=== PATIENT | male | born 1945 | race American Indian/Alaskan Native ===

== ENCOUNTER 2016-08-24 23:39 | Inpatient (IN) | payer MEDICAID, MEDICARE ==
[2016-08-25] MEDS ORDERED: Sodium Chloride 0.9% 1,000 ML IV ONE (00:24)
--- NOTE | 2016-08-25 00:24 | C.PDOC ---
History Of Present Illness Patient presents to the ER with a complaint of LLQ pain with no appetite. Patient saw PMD who referred her to the ER. Denies fever or chills. Time Seen by Provider: 08/25/16 00:21 Chief Complaint (Nursing): Abdominal Pain History Per: Patient History/Exam Limitations: no limitations Onset/Duration Of Symptoms: Hrs Current Symptoms Are (Timing): Still Present Severity: Moderate Pain Scale Rating Of: 4 Location Of Pain/Discomfort: LLQ Radiation Of Pain To:: None Quality Of Discomfort: Unable To Describe Associated Symptoms: denies: Fever, Chills Exacerbating Factors: None Alleviating Factors: None Last Bowel Movement: Days Ago Recent travel outside of the [place]: No Additional History Per: Patient Past Medical History Reviewed: Historical Data, Nursing Documentation, Vital Signs Vital Signs: Last Vital Signs Temp 97.7 F 08/24/16 23:48 Pulse 82 08/24/16 23:48 Resp 16 08/24/16 23:48 BP 126/74 08/24/16 23:48 Pulse Ox 99 08/25/16 01:51 - Medical History PMH: No Chronic Diseases Surgical History: No Surg Hx Family History: States: No Known Family Hx - Social History Hx Alcohol Use: No Hx Substance Use: No - Immunization History Hx Tetanus Toxoid Vaccination: No Hx Influenza Vaccination: No Hx Pneumococcal Vaccination: No Review Of Systems Constitutional: Negative for: Fever, Chills ENT: Negative for: Throat Pain Cardiovascular: Negative for: Chest Pain Respiratory: Negative for: Shortness of Breath Gastrointestinal: Positive for: Abdominal Pain (LLQ), Constipation Genitourinary: Negative for: Dysuria Musculoskeletal: Negative for: Back Pain Skin: Negative for: Rash, Lesions, Jaundice, Bruising Neurological: Negative for: Weakness Psych: Negative for: Anxiety Physical Exam - Physical Exam Appears: Non-toxic Skin: Warm, Dry Eye(s): bilateral: Normal Inspection Oral Mucosa: Moist Neck: Trachea Midline, Supple Chest: Symmetrical, No Tenderness Cardiovascular: Rhythm Regular, No Murmur Respiratory: No Rales, No Rhonchi, No Wheezing Gastrointestinal/Abdominal: Soft, Tenderness (LLQ), No Guarding, No Rebound Back: Normal Inspection Extremity: Normal ROM Extremity: Bilateral: Atraumatic, Normal Color And Temperature Neurological/Psych: Oriented x3, Normal Speech, Normal Cognition Gait: Steady ED Course And Treatment - Laboratory Results Result Diagrams: 08/25/16 00:40 08/25/16 00:40 O2 Sat by Pulse Oximetry: 99 (Room air) Pulse Ox Interpretation: Normal Progress Note: Toradol IVP, pepcid IVP and IV fluids administered. CT of abd/ pel w/ IV contrast ordered. Disposition Discussed With DrKeegan: Leda Alex Comment: accepted the pt on his service and took over the care at 2 AM Doctor Will See Patient In The: Hospital Counseled Patient/Family Regarding: Studies Performed, Diagnosis - Disposition Disposition: HOSPITALIZED Disposition Time: 00:24 Condition: FAIR - POA Present On Arrival: None - Clinical Impression Clinical Impression: Abdominal pain, Elevated liver enzymes, Pancreatic mass - Scribe Statement The provider has reviewed the documentation as recorded by the Scribe Lionel Levin All medical record entries made by the Scribe were at my direction and personally dictated by me. I have reviewed the chart and agree that the record accurately reflects my personal performance of the history, physical exam, medical decision making, and the department course for this patient. I have also personally directed, reviewed, and agree with the discharge instructions and disposition. Decision To Admit - Pt Status Changed To: Hospital Disposition Of: Inpatient - Admit Certification Admit to Inpatient:: After my assessment, the patient will require hospitalization for at least two midnights. This is because of the severity of symptoms shown, intensity of services needed, and/or the medical risk in this patient being treated as an outpatient. - InPatient: Physician Admission Certification:: After my assessment, the patient will require hospitalization for at least two midnights. This is because of the severity of symptoms shown, intensity of services needed, and/or the medical risk in this patient being treated as an outpatient. - . Bed Request Type: Regular Admitting Physician: Leda Alex Patient Diagnosis: Abdominal pain, Elevated liver enzymes, Pancreatic mass
[2016-08-25] MEDS ORDERED: Sodium Chloride 0.9% 1,000 ML ONE (00:37)
[2016-08-25 00:43] LABS: BASO % 0.8 % (0.0-2.0); EOS # 0.1 K/uL (0.0-0.7); EOS % 1.8 % (0.0-4.0); HEMATOCRIT 38.3 % (35.0-51.0); LYMPH # 1.4 K/uL (1.0-4.3); LYMPH % 25.4 % (20.0-40.0); MEAN CELL VOLUME 91.1 fL (80.0-94.0); MEAN CORPUSCULAR HEMOGLOBIN 30.4 pg (27.0-31.0); MEAN CORPUSCULAR HGB CONC 33.3 g/dL (33.0-37.0); MEAN PLATELET VOLUME 10.4 fL (7.2-11.7); MONO # 0.7 K/uL (0.0-0.8); MONO % 11.9 % (0.0-10.0); NRBC % 0.1 % (0.0-2.0); RED CELL DISTRIBUTION WIDTH 14.2 % (11.5-14.5); WHITE BLOOD COUNT 5.6 K/uL (4.8-10.8)
[2016-08-25 00:47] LABS: RBC URINE < 1 /hpf (0-3); URINE BACTERIA RARE (<OCC); URINE BILIRUBIN 2+ (NEGATIVE); URINE BLOOD NEGATIVE (NEGATIVE); URINE COLOR Amber (YELLOW); URINE GLUCOSE (UA) NORMAL (Normal); URINE KETONE NEGATIVE (NEGATIVE); URINE LEUKOCYTE ESTERASE NEG Leu/uL (Negative); URINE PROTEIN NEGATIVE (NEGATIVE); WBC URINE 3 /hpf (0-5)
[2016-08-25] MEDS ORDERED: Iodixanol 320 MG/ML 100 ML BOTTLE IV ONE (00:50)
[2016-08-25 00:53] LABS: CHLORIDE 97 mmol/L (98-107); INR 1.1; POTASSIUM 4.3 mmol/L (3.6-5.2); SODIUM 132 mmol/L (132-148)
[2016-08-25 00:56] LABS: ALKALINE PHOSPHATASE 393 U/L (38-126); ALT/SGPT 263 U/L (21-72); AST/SGOT 177 U/L (17-59); BILIRUBIN,TOTAL 10.3 mg/dL (0.2-1.3); BLOOD UREA NITROGEN 11 mg/dL (9-20); CALCIUM 9.3 mg/dl (8.6-10.4); CARBON DIOXIDE 24 mmol/L (22-30); GFR AFRICAN-AMERICAN > 60; GLUCOSE,RANDOM 108 mg/dL (75-110); TOTAL PROTEIN 7.9 g/dL (6.3-8.3)
[2016-08-25 03:08] VITALS: RESP 20
[2016-08-25] MEDS: Sodium Chloride 0.9% 1,000 ML IV SCH ×2 (09:30→19:30)
--- NOTE | 2016-08-25 10:53 | CT ---
PROCEDURE: CT Abdomen and Pelvis with contrast HISTORY: abd pain COMPARISON: None. TECHNIQUE: Contrast dose: 100 cc Visipaque 320 Radiation dose: Total exam DLP = mGy-cm. This CT exam was performed using one or more of the following dose reduction techniques: Automated exposure control, adjustment of the mA and/or kV according to patient size, and/or use of iterative reconstruction technique. FINDINGS: 354.11 LOWER THORAX: Unremarkable. LIVER: No focal hepatic mass. Moderate -severe intrahepatic bile duct dilatation. She GALLBLADDER AND BILE DUCTS: Distended gallbladder, dilated common bile duct and intrahepatic biliary radicles. PANCREAS: Ill-defined pancreatic head mass 4.4 x 4.3 cm. Diffuse infiltrative changes peripancreatic region with narrowing, involvement of branches of the celiac, splenic and hepatic arteries. This is inseparable from adjacent lymphadenopathy. Dilatation of the more distal pancreatic duct and pancreatic atrophy. Common and intrahepatic bile duct dilatation. SPLEEN: Unremarkable spleen. 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 ADRENALS: Unremarkable. No mass. KIDNEYS AND URETERS: Unremarkable. No hydronephrosis. No solid mass. VASCULATURE: Unremarkable. No aortic aneurysm. BOWEL: Unremarkable. No obstruction. No gross mural thickening. APPENDIX: Normal appendix. PERITONEUM: Unremarkable. No free fluid. No free air. LYMPH NODES: Unremarkable. No enlarged lymph nodes. BLADDER: Unremarkable. REPRODUCTIVE: Unremarkable. BONES: No acute fracture. OTHER FINDINGS: None. IMPRESSION: Findings consistent with primary pancreatic neoplasm. Large bulky mass involving the head of the pancreas is inseparable from diffuse infiltrative tumor burden invading and narrowing celiac axis and branch vessels as well as occluding the splenic vein. Obstruction of the biliary system with common bile duct and intrahepatic bile duct dilatation. Multiple pulmonary nodules consistent with metastatic disease. Concordant results (preliminary interpretation) provided by [facility]. Procedure Completed: :29. Preliminary ([facility]) Report: Dictated and Authenticated: 01:55. Final Interpretation: 07:45. August 24, 2016.
--- NOTE | 2016-08-25 13:42 | CP.PCM.CON ---
<Farida Roque - Last Filed: 08/25/16 13:55> History of Present Illness - History of Present Illness History of Present Illness: Gastroenterology Fellow/PGY4 Consult Note 71 year old male with no prior medial history presenting with abdominal pain. Patient describes progressive epigastric and left upper quadrant pain radiating to left flank for four weeks. He notes a 45 pound unintentional weight loss since April 2016. Associated loss of appetite, indigestion, acid reflux, bloating, yellowing of eyes, and lack of sleep due to pain for the last 4-5 weeks. Denies nausea, vomiting, hematemesis, diarrhea, melena, hematochezia, yellowing of skin, pruritis, fever, chills, sweats, chest pain, or shortness of breath. Admits to constipation with no bowel movement for two weeks in July 2016. He associates this episode with only oral intake via juicing of fruits and vegetables. Outside of this ever, bowel habit with straining every two days. No prior EGD. Prior colonoscopy 2002 and 2007 or 2008 endorsed to be normal. Family- denies pancreatic cancer, liver cancer, colon cancer Social-denies prior or present use of tobacco or illict drug use, rare wine intake of once per year; vegetarian Surgery- none Review of Systems - Review of Systems Review of Systems: A 12-point review of systems negative except for as above Past Patient History - Past Medical History & Family History Past Medical History?: Yes - Past Social History Smoking Status: Never Smoked - CARDIAC Hx Cardiac Disorders: No - PULMONARY Hx Respiratory Disorders: No - NEUROLOGICAL Hx Neurological Disorder: No - HEENT Hx HEENT Problems: Yes Other/Comment: pt wears prescription eyeglasses - RENAL Hx Chronic Kidney Disease: No - ENDOCRINE/METABOLIC Hx Endocrine Disorders: No - HEMATOLOGICAL/ONCOLOGICAL Hx Blood Disorders: No - INTEGUMENTARY Hx Dermatological Problems: No - MUSCULOSKELETAL/RHEUMATOLOGICAL Hx Musculoskeletal Disorders: No Hx Falls: No - GASTROINTESTINAL Hx Gastrointestinal Disorders: No - GENITOURINARY/GYNECOLOGICAL Hx Genitourinary Disorders: No - PSYCHIATRIC Hx Psychophysiologic Disorder: No Hx Substance Use: No - SURGICAL HISTORY Hx Surgeries: No - ANESTHESIA Hx Anesthesia: No Hx Anesthesia Reactions: No Hx Malignant Hyperthermia: No Has any member of the family had a problem w/ anesthesia?: No Meds Allergies/Adverse Reactions: Allergies Allergy/AdvReac Type Severity Reaction Status Date / Time No Known Allergies Allergy Verified 08/24/16 23:54 - Medications Medications: Current Medications Famotidine (Pepcid) 20 mg IVP Q12 [facility] Last Admin: 08/25/16 11:43 Dose: 20 mg Sodium Chloride (Sodium Chloride 0.9%) 1,000 mls @ 100 mls/hr IV .Q10H [facility] Last Admin: 08/25/16 09:30 Dose: 100 mls/hr Physical Exam - Constitutional Appears: Non-toxic, No Acute Distress - Head Exam Head Exam: ATRAUMATIC, NORMOCEPHALIC - Eye Exam Eye Exam: EOMI, PERRL, Scleral icterus Pupil Exam: PERRL. absent: Miosis, Mydriatic - ENT Exam ENT Exam: Mucous Membranes Moist, Normal Oropharynx - Neck Exam Neck exam: Positive for: Full Rom, Normal Inspection - Respiratory Exam Respiratory Exam: Clear to Auscultation Bilateral. absent: Rales, Rhonchi, Wheezes - Cardiovascular Exam Cardiovascular Exam: RRR, +S1, +S2. absent: Gallop, Rubs - GI/Abdominal Exam GI & Abdominal Exam: Normal Bowel Sounds, Soft, Tenderness. absent: Distended, Firm, Guarding, Organomegaly, Rebound, Rigid Additional comments: epigastric and LUQ tenderness to palpation - Extremities Exam Extremities exam: Positive for: full ROM. Negative for: pedal edema - Neurological Exam Neurological exam: Alert - Psychiatric Exam Psychiatric exam: Normal Affect, Normal Mood - Skin Skin Exam: Dry, Intact, Normal Color, Warm Results - Vital Signs Recent Vital Signs: Last Vital Signs Temp 98.3 F 08/25/16 07:45 Pulse 76 08/25/16 07:45 Resp 20 08/25/16 07:45 BP 144/81 08/25/16 07:45 Pulse Ox 100 08/25/16 07:45 - Labs Result Diagrams: 08/25/16 00:40 08/25/16 00:40 Assessment & Plan - Assessment and Plan (Free Text) Assessment: 71 year old male with no prior medial history presenting with abdominal pain and weight loss. CT A/P showed pancreatic head 4.4x4.3cm lesion with narrowing of celiac axis inseparable from adjacent lymphadenopathy, distal pancreatic duct dilatation, moderate-severe biliary dilatations, and multiple pulmonary nodules concerning for metastatic disease. laboratory findings showed hyperbilirubinemia and transaminitis. No prior EGD. Prior colonoscopy 2002 and 2007 or 2008 endorsed to be normal. Plan: >high suspicion for pancreatic carcinoma with liver metastases >ordered DB, Hepatitis panel, GGT >scheduled for EGD/EUS/ERCP/FNA at [facility] Monday >vegetarian diet >NPO after midnight >Hem/Onc consulted- follow up recommendations >supportive care: pain control >further recommendations based on clinical course <Melvin Don - Last Filed: 08/25/16 14:46> Meds - Medications Medications: Current Medications Famotidine (Pepcid) 20 mg IVP Q12 [facility] Last Admin: 08/25/16 11:43 Dose: 20 mg Sodium Chloride (Sodium Chloride 0.9%) 1,000 mls @ 100 mls/hr IV .Q10H [facility] Last Admin: 08/25/16 09:30 Dose: 100 mls/hr Results - Vital Signs Recent Vital Signs: Last Vital Signs Temp 98.3 F 08/25/16 07:45 Pulse 76 08/25/16 07:45 Resp 20 08/25/16 07:45 BP 144/81 08/25/16 07:45 Pulse Ox 100 08/25/16 07:45 - Labs Result Diagrams: 08/25/16 00:40 08/25/16 00:40 Attending/Attestation - Attestation I have personally seen and examined this patient.: Yes I have fully participated in the care of the patient.: Yes I have reviewed all pertinent clinical information: Yes Notes (Text): 08/25/16 14:38 I have seen and examined patient with GI fellow. Agree with above documentation with the following additions. In brief, this is a 71 year old male without significant past medical history who presents to hospital with complaint of progressive abdominal pain for the past one month. He describes an epigastric pain, 4/10 intensity that radiates to left flank. There does not seem to be any association with food consumption. He also reports an unintentional weight loss of approximately 45 pounds over the past 5 months along with fatigue and loss of appetite. Recent visit to PMD prompted patient to come to hospital after jaundice was noted on examination. He otherwise denies nausea, vomiting, fever/chills, diarrhea, rectal bleeding, or change in bowel habits. He had a colonoscopy 8 years ago which was normal as per patient , no prior EGD. Abdominal pain, weight loss Obstructive jaundice - acute posing threat to patient life CT imaging reviewed by me showing a focal pancreatic head mass along with associated biliary dilation of CBD/PD, multiple pulmonary nodules suggestive of metastatic disease - Clinical picture worrisome for underlying malignancy, suspected to be pancreatic in origin - Pain control - Will plan for EUS/FNA of lesion along with ERCP +/- stent placement for biliary decompression - Continue to monitor LFTs - Fractionate bilirubin - Oncology evaluation called by medical team, follow up recommendations - NPO after midnight for planned endoscopic intervention tomorrow to be performed at [place] with Dr. Scanlon
--- NOTE | 2016-08-25 18:53 | CP.PCM.HP ---
History of Present Illness - History of Present Illness History of Present Illness: 71-year-old male with no prior medical history presenting with abdominal pain. Patient describes progressive epigastric and left upper quadrant pain radiating to left flank for 4 weeks. Patient notes a 45 pound unintentional weight loss since April 2016. Associated loss of appetite, indigestion, acid reflux, bloating, evaluation of eyes, lack of sleep due to pain for the last 4-5 weeks. Denies nausea, vomiting, hematemesis, diarrhea, melena, hematochezia, elevation of skin, pruritus, fever, chills, sweats, chest pain or SOB. Admits to constipation with no bowel movement for 2 weeks in 2016. Outside of this ever, bowel habit straining every 2 days. No prior EGD, prior colonoscopy 2002 and 2007 or 2008 to be normal. Present on Admission - Present on Admission Any Indicators Present on Admission: No Past Patient History - Past Medical History & Family History Past Medical History?: Yes - Past Social History Smoking Status: Never Smoked - CARDIAC Hx Cardiac Disorders: No - PULMONARY Hx Respiratory Disorders: No - NEUROLOGICAL Hx Neurological Disorder: No - HEENT Hx HEENT Problems: Yes Other/Comment: pt wears prescription eyeglasses - RENAL Hx Chronic Kidney Disease: No - ENDOCRINE/METABOLIC Hx Endocrine Disorders: No - HEMATOLOGICAL/ONCOLOGICAL Hx Blood Disorders: No - INTEGUMENTARY Hx Dermatological Problems: No - MUSCULOSKELETAL/RHEUMATOLOGICAL Hx Musculoskeletal Disorders: No Hx Falls: No - GASTROINTESTINAL Hx Gastrointestinal Disorders: No - GENITOURINARY/GYNECOLOGICAL Hx Genitourinary Disorders: No - PSYCHIATRIC Hx Psychophysiologic Disorder: No Hx Substance Use: No - SURGICAL HISTORY Hx Surgeries: No - ANESTHESIA Hx Anesthesia: No Hx Anesthesia Reactions: No Hx Malignant Hyperthermia: No Has any member of the family had a problem w/ anesthesia?: No Meds Allergies/Adverse Reactions: Allergies Allergy/AdvReac Type Severity Reaction Status Date / Time No Known Allergies Allergy Verified 08/24/16 23:54 Physical Exam - Constitutional Appears: Well - Head Exam Head Exam: ATRAUMATIC, NORMAL INSPECTION, NORMOCEPHALIC - Eye Exam Eye Exam: EOMI, Normal appearance, PERRL Pupil Exam: NORMAL ACCOMODATION, PERRL - ENT Exam ENT Exam: Mucous Membranes Moist, Normal Exam - Neck Exam Neck exam: Positive for: Normal Inspection - Respiratory Exam Respiratory Exam: Decreased Breath Sounds - Cardiovascular Exam Cardiovascular Exam: REGULAR RHYTHM, +S1, +S2 - GI/Abdominal Exam GI & Abdominal Exam: Diminished Bowel Sounds, Soft - Rectal Exam Rectal Exam: Deferred Results - Vital Signs Recent Vital Signs: Last Vital Signs Temp 97.3 F L 08/25/16 15:40 Pulse 64 08/25/16 15:40 Resp 20 08/25/16 15:40 BP 108/70 08/25/16 15:40 Pulse Ox 97 08/25/16 15:40 - Labs Result Diagrams: 08/28/16 08:16 08/28/16 08:16 Labs: Laboratory Results - last 24 hr 08/25/16 08/25/16 08/25/16 17:02 17:02 17:06 POC Glucose (mg/dL) 144 H Direct Bilirubin 7.0 H GGT 254 H Hepatitis A IgM Ab Negative Hep Bs Antigen Negative Hep B Core IgM Ab Negative Hepatitis C Antibody Negative Assessment & Plan (1) Abdominal pain Status: Acute (2) Elevated liver enzymes Status: Acute (3) Pancreatic mass Status: Acute - Assessment and Plan (Free Text) Plan: Consult hematology/oncology Consult GI Pepcid IV fluid Dilaudid
[2016-08-26] MEDS: HYDROmorphone 1 mg/ml ISec IVP PRN (00:30)
[2016-08-26] MEDS: Sodium Chloride 0.9% 1,000 ML IV SCH ×3 (00:34→23:10)
--- NOTE | 2016-08-26 13:22 | CP.PCM.PN ---
Subjective - Date & Time of Evaluation Date of Evaluation: 08/26/16 Time of Evaluation: 08:00 - Subjective Subjective: clinically same Objective - Vital Signs/Intake and Output Vital Signs (last 24 hours): Temp Pulse Resp BP Pulse Ox 97.6 F 69 20 118/63 97 08/26/16 06:34 08/26/16 06:34 08/26/16 06:34 08/26/16 06:34 08/26/16 06:34 Intake and Output: 08/26/16 08/26/16 06:59 18:59 Intake Total 1500 Balance 1500 - Medications Medications: Current Medications Famotidine (Pepcid) 20 mg IVP Q12 [facility] Last Admin: 08/25/16 21:08 Dose: 20 mg Hydromorphone HCl (Dilaudid) 1 mg IVP Q8H PRN PRN Reason: for pain Last Admin: 08/26/16 00:30 Dose: 1 mg Sodium Chloride (Sodium Chloride 0.9%) 1,000 mls @ 75 mls/hr IV .[id number] [facility] Last Admin: 08/26/16 00:34 Dose: 75 mls/hr - Labs Labs: PT 12.1 SECONDS (9.7-12.2) 08/25/16 00:40 INR 1.1 08/25/16 00:40 APTT 32 SECONDS (21-34) 08/25/16 00:40 - Constitutional Appears: Well - Head Exam Head Exam: ATRAUMATIC, NORMAL INSPECTION, NORMOCEPHALIC - Eye Exam Eye Exam: EOMI, Normal appearance, PERRL Pupil Exam: NORMAL ACCOMODATION, PERRL - ENT Exam ENT Exam: Mucous Membranes Moist, Normal Exam - Neck Exam Neck Exam: Full ROM, Normal Inspection. absent: Lymphadenopathy - Respiratory Exam Respiratory Exam: Decreased Breath Sounds - Cardiovascular Exam Cardiovascular Exam: REGULAR RHYTHM, +S1, +S2 - GI/Abdominal Exam GI & Abdominal Exam: Soft, Diminished Bowel Sounds - Rectal Exam Rectal Exam: Deferred Assessment and Plan - Assessment and Plan (Free Text) Plan: ctscan reveals large mass in hed of prncreaseand also incolving mulitple mets to pulmnoary area will discussed iwht pt
--- NOTE | 2016-08-26 14:53 | CON ---
DATE: 08/26/2016 A 71-year-old gentleman, got readmitted with abdominal pain and discomfort. Also, has lost 45 pounds of involuntary weight loss, decreased appetite, decreased energy, feeling very weak and tired. Also , has a bloating sensation. Eyes have become yellow. However, no nausea, vomiting, hematemesis. No diarrhea or melena. Some pruritus, but no fever or chills, no night sweats. Now admitted, already had a CAT scan done which showed metastatic carcinoma of the pancreas to the liver, possible to the l joanne too. I am called on consult for further evaluation and suggestions. PAST MEDICAL HISTORY: Not been significant. MEDICATIONS: The patient is on Pepcid. ALLERGIES: No known drug allergies. Nonsmoker, no ethanol abuse, vegetarian. FAMILY HISTORY: Not significant for any malignancy. REVIEW OF SYSTEMS: Denies any headache, dizziness, or passing out. Generalized weakness. No chest pain or palpitation. No nausea or vomiting. Denies any dysuria or hematuria. PHYSICAL EXAMINATION: GENERAL: Awake and alert, emaciated. VITAL SIGNS: Temperature 97.3, pulse 64, respirations 20, blood pressure 108/70. HEAD: Normocephalic, atraumatic. EYES: Conjunctivae pink. Sclerae icteric. Pupils reacting to light. EARS, NOSE, AND THROAT: Within normal limits. LUNGS: Bilaterally good air entry. Clear to auscultation and percussion. HEART: S1, S2, regular, no gallop, no murmur. ABDOMEN: Soft, mild tenderness in the midepigastric region. LYMPH NODES: No cervical or axillary lymph nodes palpable. LABORATORY DATA: WBC 5600, hemoglobin 12.8, hematocrit 38.3, platelet counts 159,000. Bilirubin is 10.3. His GGTP is 244. SGOT is 263, SGPT is 393. 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 PLAN: The patient was already evaluated by the skydiving instructor. Will have a workup done to confi rm the diagnosis with a biopsy, most likely with endoscopic ultrasound. Once the biopsy confirms the diagnosis, we can talk about further treatment. The patient's prognosis is poor. I will discuss mo re detail with the patient after the biopsy has been done. Thank you for letting me participate in the care of this patient and I will follow up the patient wit h you. Juan Dominguez MD cc: [id number] TT: 08/26/2016 14:52:33 Confirmation # [id number] Dictation # [id number]
[2016-08-26 21:39] LABS: BASO % 0.1 % (0.0-2.0); EOS % 0.3 % (0.0-4.0); HEMATOCRIT 40.5 % (35.0-51.0); LYMPH # 0.9 K/uL (1.0-4.3); LYMPH % 10.5 % (20.0-40.0); MEAN CORPUSCULAR HEMOGLOBIN 30.9 pg (27.0-31.0); MEAN CORPUSCULAR HGB CONC 33.5 g/dL (33.0-37.0); MEAN PLATELET VOLUME 10.8 fL (7.2-11.7); MONO # 0.8 K/uL (0.0-0.8); MONO % 9.4 % (0.0-10.0); RED CELL DISTRIBUTION WIDTH 14.6 % (11.5-14.5); WHITE BLOOD COUNT 8.7 K/uL (4.8-10.8)
[2016-08-26 21:47] LABS: CHLORIDE 98 mmol/L (98-107); POTASSIUM 4.4 mmol/L (3.6-5.2); SODIUM 135 mmol/L (132-148)
[2016-08-26 21:49] LABS: BILIRUBIN,TOTAL 8.1 mg/dL (0.2-1.3); CARBON DIOXIDE 28 mmol/L (22-30); GFR AFRICAN-AMERICAN > 60
[2016-08-26 21:50] LABS: ALKALINE PHOSPHATASE 368 U/L (38-126); ALT/SGPT 254 U/L (21-72); AST/SGOT 163 U/L (17-59); BLOOD UREA NITROGEN 8 mg/dL (9-20); GLUCOSE,RANDOM 153 mg/dL (75-110); TOTAL PROTEIN 7.9 g/dL (6.3-8.3)
[2016-08-27] MEDS: Sodium Chloride 0.9% 1,000 ML IV SCH ×2 (05:40→18:44)
--- NOTE | 2016-08-27 10:04 | CP.PCM.PN ---
<RonAnnmariesFarida - Last Filed: 08/27/16 10:09> Subjective - Date & Time of Evaluation Date of Evaluation: 08/27/16 Time of Evaluation: 10:02 - Subjective Subjective: Gastroenterology Fellow/PGY4 Progress Note Patient notes slight epigastric discomfort with movement. Tolerating vegan diet. Notes bowel moevment yesterday. A 12-point review of systems negative except for as above. Objective - Vital Signs/Intake and Output Vital Signs (last 24 hours): Temp Pulse Resp BP Pulse Ox 97.5 F L 65 20 111/70 99 08/27/16 08:20 08/27/16 08:20 08/27/16 08:20 08/27/16 08:20 08/27/16 08:20 Intake and Output: 08/27/16 08/27/16 06:59 18:59 Intake Total 1490 Balance 1490 - Medications Medications: Current Medications Famotidine (Pepcid) 20 mg IVP Q12 [facility] Last Admin: 08/26/16 21:43 Dose: 20 mg Hydromorphone HCl (Dilaudid) 1 mg IVP Q8H PRN PRN Reason: for pain Last Admin: 08/26/16 00:30 Dose: 1 mg Sodium Chloride (Sodium Chloride 0.9%) 1,000 mls @ 75 mls/hr IV .[id number] [facility] Last Admin: 08/27/16 05:40 Dose: Not Given - Labs Labs: 08/26/16 21:33 08/26/16 21:33 PT 12.1 SECONDS (9.7-12.2) 08/25/16 00:40 INR 1.1 08/25/16 00:40 APTT 32 SECONDS (21-34) 08/25/16 00:40 - Constitutional Appears: Non-toxic, No Acute Distress - Head Exam Head Exam: ATRAUMATIC, NORMOCEPHALIC - Eye Exam Eye Exam: EOMI, PERRL Pupil Exam: PERRL. absent: Miosis, Mydriatic - ENT Exam ENT Exam: Mucous Membranes Moist, Normal Oropharynx - Neck Exam Neck Exam: Full ROM, Normal Inspection - Respiratory Exam Respiratory Exam: Clear to Ausculation Bilateral. absent: Rales, Rhonchi, Wheezes - Cardiovascular Exam Cardiovascular Exam: RRR, +S1, +S2. absent: Gallop, Rubs - GI/Abdominal Exam GI & Abdominal Exam: Soft, Tenderness, Normal Bowel Sounds. absent: Distended, Firm, Guarding, Rigid, Organomegaly, Rebound Additional comments: mild epigastric discomfort to palpation - Extremities Exam Extremities Exam: Full ROM. absent: Pedal Edema - Neurological Exam Neurological Exam: Alert, Awake - Psychiatric Exam Psychiatric exam: Normal Affect, Normal Mood - Skin Skin Exam: Dry, Intact, Normal Color, Warm Assessment and Plan - Assessment and Plan (Free Text) Assessment: 71 year old male with no prior medial history presenting with abdominal pain and weight loss. CT A/P showed pancreatic head 4.4x4.3cm lesion with narrowing of celiac axis inseparable from adjacent lymphadenopathy, distal pancreatic duct dilatation, moderate-severe biliary dilatations, and multiple pulmonary nodules concerning for metastatic disease. laboratory findings showed hyperbilirubinemia and transaminitis. No prior EGD. Prior colonoscopy 2002 and 2007 or 2008 endorsed to be normal. 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 >order CT chest and CT pancreas protocol >no signs of post-ERCP pancreatitis >tolerating vegetarian diet >cleared for discharge from GI standpoint with outpatient follow up: GI- and Hem/Onc <Melvin Don Y - Last Filed: 08/27/16 10:23> Objective - Vital Signs/Intake and Output Vital Signs (last 24 hours): Temp Pulse Resp BP Pulse Ox 97.5 F L 65 20 111/70 99 08/27/16 08:20 08/27/16 08:20 08/27/16 08:20 08/27/16 08:20 08/27/16 08:20 Intake and Output: 08/27/16 08/27/16 06:59 18:59 Intake Total 1490 Balance 1490 - Medications Medications: Current Medications Famotidine (Pepcid) 20 mg IVP Q12 [facility] Last Admin: 08/27/16 10:19 Dose: 20 mg Hydromorphone HCl (Dilaudid) 1 mg IVP Q8H PRN PRN Reason: for pain Last Admin: 08/26/16 00:30 Dose: 1 mg Sodium Chloride (Sodium Chloride 0.9%) 1,000 mls @ 75 mls/hr IV .[id number] [facility] Last Admin: 08/27/16 05:40 Dose: Not Given - Labs Labs: 08/26/16 21:33 08/26/16 21:33 PT 12.1 SECONDS (9.7-12.2) 08/25/16 00:40 INR 1.1 08/25/16 00:40 APTT 32 SECONDS (21-34) 08/25/16 00:40 Attending/Attestation - Attestation I have personally seen and examined this patient.: Yes I have fully participated in the care of the patient.: Yes I have reviewed all pertinent clinical information, including history, physical exam and plan: Yes Notes (Text): 08/27/16 10:19 I have seen and examined patient with GI fellow. No acute events overnight, he is seen ambulating in hallway, appears quite comfortable. He denies abdominal pain, nausea, vomiting, diarrhea, fever/chills. Tolerating regular diet without difficulty. S/p EUS/FNA/ERCP yesterday. Review of vitals from today are normal. Abdominal pain Unexplained weight loss, new onset jaundice Pancreatic head mass, obstructive jaundice s/p EUS/FNA, ERCP with needle knife sphincterotomy and covered metal biliary stent placement - Diet as tolerated - Await biopsy results from EUS yesterday - Continue to monitor LFTs, bilirubin - Would obtain pancreatic protocol CT and chest CT for complete staging workup. Evidence of pulmonary metastatic disease seen on prior imaging. - Follow up oncology recommendations - From GI perspective, ok to discharge patient home with subsequent GI and oncology outpatient follow up. Office contact information provided to patient who will make an appointment with Dr. Scanlon next week. Will sign off case, please reconsult as necessary, thank you.
--- NOTE | 2016-08-27 13:15 | CP.PCM.PN ---
Subjective - Date & Time of Evaluation Date of Evaluation: 08/27/16 Time of Evaluation: 08:00 - Subjective Subjective: clinically same Objective - Vital Signs/Intake and Output Vital Signs (last 24 hours): Temp Pulse Resp BP Pulse Ox 97.5 F L 65 20 111/70 99 08/27/16 08:20 08/27/16 08:20 08/27/16 08:20 08/27/16 08:20 08/27/16 08:20 Intake and Output: 08/27/16 08/27/16 06:59 18:59 Intake Total 1490 Balance 1490 - Medications Medications: Current Medications Famotidine (Pepcid) 20 mg IVP Q12 [facility] Last Admin: 08/27/16 10:19 Dose: 20 mg Hydromorphone HCl (Dilaudid) 1 mg IVP Q8H PRN PRN Reason: for pain Last Admin: 08/26/16 00:30 Dose: 1 mg Sodium Chloride (Sodium Chloride 0.9%) 1,000 mls @ 75 mls/hr IV .[id number] [facility] Last Admin: 08/27/16 05:40 Dose: Not Given - Labs Labs: 08/26/16 21:33 08/26/16 21:33 PT 12.1 SECONDS (9.7-12.2) 08/25/16 00:40 INR 1.1 08/25/16 00:40 APTT 32 SECONDS (21-34) 08/25/16 00:40 - Constitutional Appears: Well - Head Exam Head Exam: ATRAUMATIC, NORMAL INSPECTION, NORMOCEPHALIC - Eye Exam Eye Exam: EOMI, Normal appearance, PERRL Pupil Exam: NORMAL ACCOMODATION, PERRL - ENT Exam ENT Exam: Mucous Membranes Moist, Normal Exam - Neck Exam Neck Exam: Full ROM, Normal Inspection. absent: Lymphadenopathy - Respiratory Exam Respiratory Exam: Decreased Breath Sounds - Cardiovascular Exam Cardiovascular Exam: REGULAR RHYTHM, +S1, +S2 - GI/Abdominal Exam GI & Abdominal Exam: Soft, Diminished Bowel Sounds - Rectal Exam Rectal Exam: Deferred Assessment and Plan (1) Abdominal pain Status: Acute (2) Elevated liver enzymes Status: Acute (3) Pancreatic mass Status: Acute - Assessment and Plan (Free Text) Plan: Follow-up with GI Follow-up with hematology/oncology Pepcid Dilaudid IV fluid
[2016-08-27 13:52] LABS: BASO % 0.3 % (0.0-2.0); EOS # 0.1 K/uL (0.0-0.7); EOS % 1.4 % (0.0-4.0); HEMATOCRIT 35.6 % (35.0-51.0); LYMPH # 0.8 K/uL (1.0-4.3); LYMPH % 15.4 % (20.0-40.0); MEAN CELL VOLUME 90.9 fL (80.0-94.0); MEAN CORPUSCULAR HEMOGLOBIN 30.8 pg (27.0-31.0); MEAN CORPUSCULAR HGB CONC 33.9 g/dL (33.0-37.0); MEAN PLATELET VOLUME 10.6 fL (7.2-11.7); MONO # 0.6 K/uL (0.0-0.8); RED CELL DISTRIBUTION WIDTH 14.9 % (11.5-14.5); WHITE BLOOD COUNT 5.1 K/uL (4.8-10.8)
[2016-08-27 14:03] LABS: CHLORIDE 101 mmol/L (98-107); POTASSIUM 4.1 mmol/L (3.6-5.2); SODIUM 135 mmol/L (132-148)
[2016-08-27 14:05] LABS: BILIRUBIN,TOTAL 5.2 mg/dL (0.2-1.3); GFR AFRICAN-AMERICAN > 60
[2016-08-27 14:06] LABS: ALB/GLOB RATIO 0.9 (1.0-2.1); ALKALINE PHOSPHATASE 312 U/L (38-126); ALT/SGPT 196 U/L (21-72); AST/SGOT 109 U/L (17-59); BLOOD UREA NITROGEN 8 mg/dL (9-20); CARBON DIOXIDE 24 mmol/L (22-30); GLUCOSE,RANDOM 101 mg/dL (75-110); TOTAL PROTEIN 6.9 g/dL (6.3-8.3)
[2016-08-27 14:07] LABS: CALCIUM 8.5 mg/dl (8.6-10.4)
[2016-08-27] MEDS ORDERED: Iodixanol 320 MG/ML 100 ML BOTTLE IV ONE (15:49)
--- NOTE | 2016-08-27 17:18 | CT ---
PROCEDURE: CT Abdomen and Pelvis with contrast HISTORY: pancreatic mass COMPARISON: None. TECHNIQUE: Contrast dose: 100 cc Visipaque 320. Radiation dose: Total exam DLP = 1232.14 mGy-cm. This CT exam was performed using one or more of the following dose reduction techniques: Automated exposure control, adjustment of the mA and/or kV according to patient size, and/or use of iterative reconstruction technique. FINDINGS: LOWER THORAX: As visualized stable pulmonary nodules. New consolidative changes lateral segment right lower lobe. LIVER: Decompression of biliary radicles. Air identified and non dependent bile ducts. Peripheral mass right hepatic lobe 10 mm. Likely small hepatic metastasis. GALLBLADDER AND BILE DUCTS: Distended gallbladder with air-fluid level. Stent identified in the common bile duct in satisfactory position with narrowing related to circumferential tumor in the region of the pancreatic head, adjacent peripancreatic tissues. PANCREAS: Diffuse, infiltrative mass involving the head of the pancreas. Desmoplastic infiltration of peripancreatic retroperitoneal structures has resulted in encasement of the celiac axis, occlusion of the splenic vein and portions of the portal vein near the confluence of hepatic portion and SMV. Atrophy of the tail of the pancreas beyond the mass and dilatation of the distal pancreatic duct. On the present study on the multiphasic component, of the mass measures 3.9 x 6.3 cm. SPLEEN: Unremarkable spleen, up thrombosis, occlusion of the splenic vein. Encasement of branches of the more proximal splenic artery noted. ADRENALS: No visualized calculi overlying the expected locations(s) of the kidneys, ureters and urinary bladder. KIDNEYS AND URETERS: Unremarkable. No hydronephrosis. No solid mass. VASCULATURE: Patent inferior vena cava. Non aneurysmal abdominal aorta. BOWEL: Unremarkable. No obstruction. No gross mural thickening. APPENDIX: No abnormalities to suggest acute appendicitis. No right lower quadrant inflammatory processes identified. PERITONEUM: New large volume abdominal and pelvic ascites including fluid in the right inguinal canal. LYMPH NODES: Desmoplastic infiltration of tumor in the peripancreatic region with associated barely perceptible enlarged lymph nodes summer which are necrotic. BLADDER: Unremarkable. REPRODUCTIVE: Unremarkable. BONES: No acute fracture. OTHER FINDINGS: None. IMPRESSION: 1. Large pancreatic mass involving the head and body of the pancreas measuring 6.3 x 3.9 x 4.8 cm. The tumor is locally invasive including celiac axis and branch vessels. Tumor invades the portal venous system with occlusion of the splenic vein and portions of the main portal vein. Intrahepatic portions of the portal vein are patent. 2. Low-attenuation lesion in the right hepatic lobe likely subcentimeter hepatic metastasis. 3. New large volume ascites. 4. Satisfactory position of biliary stent catheter with decompression of the biliary radicles. Additional benign and/or incidental findings described above.
--- NOTE | 2016-08-27 17:23 | CT ---
PROCEDURE: CT Chest without contrast HISTORY: concern pancreatic cancer, evaluate for metastases COMPARISON: 08/25/2016 CT abdomen and pelvis. August 27, 2016. CT abdomen and pelvis. TECHNIQUE: Contiguous axial images were obtained through the chest without intravenous contrast enhancement. Sagittal and coronal reconstructions were performed. Radiation dose (DLP): 417.21 mGy-cm. This CT exam was performed using one or more of the following dose reduction techniques: Automated exposure control, adjustment of the mA and/or kV according to patient size, and/or use of iterative reconstruction technique. FINDINGS: LUNGS: Bilateral pulmonary nodules the preponderance of which are less than 1 cm. These are identified in the left upper lobe and left lower lobe. Additional pulmonary nodules noted in the right lower lobe and pleural based nodules in the right middle lobe. The largest pulmonary nodule, masses in the right lower lobe measuring 2.2 x 2.6 cm. New consolidative changes in the right lower lobe likely infectious/ inflammatory. MEDIASTINUM: Unremarkable thoracic aorta. No aneurysm. Normal sized heart. Main pulmonary artery unremarkable. No vascular congestion. No lymphadenopathy. PLEURA: No pleural fluid. No pneumothorax. BONES: No fracture. No destructive lesion. Degenerative changes incompletely visualized upper thoracic spine. UPPER ABDOMEN: Described in greater detail in the accompanying CT of the abdomen and pelvis OTHER FINDINGS: Probable lipoma of 1.9 x 5.9 cm paravertebral musculature are upper thoracic spine region which is primarily subcutaneous in location and likely a benign, incidental finding. IMPRESSION: Innumerable pulmonary nodules, masses indicative of metastatic disease. New subsegmental infiltrate right lower lobe.
[2016-08-27] MEDS: HYDROmorphone 1 mg/ml ISec IVP PRN (18:38)
[2016-08-28] MEDS: HYDROmorphone 1 mg/ml ISec IVP PRN ×3 (05:05→21:01)
[2016-08-28] MEDS: Sodium Chloride 0.9% 1,000 ML IV SCH ×2 (05:20→19:00)
[2016-08-28 08:29] LABS: BASO % 0.7 % (0.0-2.0); EOS # 0.1 K/uL (0.0-0.7); EOS % 2.2 % (0.0-4.0); HEMATOCRIT 36.1 % (35.0-51.0); LYMPH % 16.4 % (20.0-40.0); MEAN CELL VOLUME 90.9 fL (80.0-94.0); MEAN CORPUSCULAR HEMOGLOBIN 30.5 pg (27.0-31.0); MEAN CORPUSCULAR HGB CONC 33.6 g/dL (33.0-37.0); MEAN PLATELET VOLUME 10.6 fL (7.2-11.7); MONO # 0.6 K/uL (0.0-0.8); MONO % 10.7 % (0.0-10.0); RED CELL DISTRIBUTION WIDTH 14.6 % (11.5-14.5)
[2016-08-28 08:31] LABS: CHLORIDE 102 mmol/L (98-107)
[2016-08-28 08:32] LABS: POTASSIUM 4.1 mmol/L (3.6-5.2); SODIUM 133 mmol/L (132-148)
[2016-08-28 08:34] LABS: AST/SGOT 86 U/L (17-59); BILIRUBIN,TOTAL 4.7 mg/dL (0.2-1.3); CARBON DIOXIDE 23 mmol/L (22-30); GFR AFRICAN-AMERICAN > 60
[2016-08-28 08:35] LABS: ALB/GLOB RATIO 0.9 (1.0-2.1); ALKALINE PHOSPHATASE 328 U/L (38-126); ALT/SGPT 164 U/L (21-72); BLOOD UREA NITROGEN 6 mg/dL (9-20); CALCIUM 8.4 mg/dl (8.6-10.4); GLUCOSE,RANDOM 109 mg/dL (75-110); TOTAL PROTEIN 6.4 g/dL (6.3-8.3)
--- NOTE | 2016-08-28 12:21 | CP.PCM.PN ---
Subjective - Date & Time of Evaluation Date of Evaluation: 08/28/16 Time of Evaluation: 07:40 - Subjective Subjective: clinically same Objective - Vital Signs/Intake and Output Vital Signs (last 24 hours): Temp Pulse Resp BP Pulse Ox 98.0 F 85 20 125/75 96 08/28/16 08:00 08/28/16 08:00 08/28/16 08:00 08/28/16 08:00 08/28/16 08:00 Intake and Output: 08/28/16 08/28/16 06:59 18:59 Intake Total 2019 Balance 2019 - Medications Medications: Current Medications Famotidine (Pepcid) 20 mg IVP Q12 [facility] Last Admin: 08/28/16 09:33 Dose: 20 mg Hydromorphone HCl (Dilaudid) 1 mg IVP Q8H PRN PRN Reason: for pain Last Admin: 08/28/16 05:05 Dose: 1 mg Sodium Chloride (Sodium Chloride 0.9%) 1,000 mls @ 75 mls/hr IV .[id number] [facility] Last Admin: 08/28/16 05:20 Dose: Not Given - Labs Labs: 08/28/16 08:16 08/28/16 08:16 PT 12.1 SECONDS (9.7-12.2) 08/25/16 00:40 INR 1.1 08/25/16 00:40 APTT 32 SECONDS (21-34) 08/25/16 00:40 - Constitutional Appears: Well - Head Exam Head Exam: ATRAUMATIC, NORMAL INSPECTION, NORMOCEPHALIC - Eye Exam Eye Exam: EOMI, Normal appearance, PERRL Pupil Exam: NORMAL ACCOMODATION, PERRL - ENT Exam ENT Exam: Mucous Membranes Moist, Normal Exam - Neck Exam Neck Exam: Full ROM, Normal Inspection. absent: Lymphadenopathy - Respiratory Exam Respiratory Exam: Decreased Breath Sounds - Cardiovascular Exam Cardiovascular Exam: REGULAR RHYTHM, +S1, +S2 - GI/Abdominal Exam GI & Abdominal Exam: Soft, Diminished Bowel Sounds - Rectal Exam Rectal Exam: Deferred Assessment and Plan (1) Abdominal pain Status: Acute (2) Elevated liver enzymes Status: Acute (3) Pancreatic mass Status: Acute - Assessment and Plan (Free Text) Plan: Patient to be discharged today Follow-up with me on office on Monday Follow-up with hematology/oncology
[2016-08-29] MEDS: HYDROmorphone 1 mg/ml ISec IVP PRN (05:01)
[2016-08-29 08:33] VITALS: BP 135/88; PULSE 99; TEMP 98.8; O2SAT 95
== END 2016-08-29 11:13 | disposition home or self-care (01) | DRG 437 ==
LOC: EDSEX 23:39 → C.ER 23:39 → C.9E 08-25 02:02 → C.3T 08-25 02:50
PROVIDERS: ADMIT Internal Medicine Nephrology; ATTEND Internal Medicine Nephrology
PROC: 0F798DZ Dilation of Common Bile Duct with Intraluminal Device, Via Natural or Artificial Opening Endoscopic (ICD-10-PCS; principal; 2016-08-26)
PROC: 0FBG4ZX Excision of Pancreas, Percutaneous Endoscopic Approach, Diagnostic (ICD-10-PCS; 2016-08-26)
DX: C25.0 Malignant neoplasm of head of pancreas (principal); E80.6 Other disorders of bilirubin metabolism; R63.4 Abnormal weight loss; K21.9 Gastro-esophageal reflux disease without esophagitis